=== PATIENT | male | born 1950 | race Caucasian/White ===

== ENCOUNTER → 2018-10-18 11:22 | Outpatient (CLI) | payer BC ==
[2015-12-08 12:13] VITALS: BMI 28.3
[~2018-10-18 11:22] MED LIST: BYSTOLIC10 MG PO; CATAPRES0.1 MG PO; FLOMAX0.4 MG PO; GLUCOPHAGE500 MG PO; LOTREL 5/10 MG1 CAP PO; PRAVACHOL40 MG PO
== END | disposition home or self-care (01) ==
LOC: D.HCCARDIO 11:22
PROVIDERS: ATTEND Internal Medicine Cardiovascular Disease
DX: I25.810 Atherosclerosis of coronary artery bypass graft(s) without angina pectoris (principal)

== ENCOUNTER → 2018-10-25 14:14 | Outpatient (CLI) | payer BC | END | disposition home or self-care (01) | LOC: D.HCCARDIO 14:14 | DX: R06.02 Shortness of breath (principal) ==

== ENCOUNTER 2018-10-30 11:56 | Outpatient (CLI) | payer BC ==
--- NOTE | ~2018-10-30 | HEMODYNAMI ---
PATIENT:YOKO GARG MEDICAL RECORD: [id number] : 54 LOCATION:[facility] ADMISSION DATE: 10/30/18 Generatedon:10/30/201815:06 Patient name: YOKO GARG Patient #: [id number] SSN: : 1950 Date of study: 10/30/2018 Page: Of Hemodynamic Procedure Report Patient Data Patient Demographics Procedure consent was obtained First Name: YOKO Gender: Male Last Name: FOREST : 1950 [facility] Initial: MACRINA Age: 68 year(s) Patient #: [id number] Race: Additional ID: [id number] Contact details Address: [address] [place] [address] State: [place] City: [place] Zip code: [address] Admission Admission Data Admission Date: 10/30/2018 Admission Time: 11:56 Admit Source: Other Weight (lbs.): 193.35 Weight (kg.): 87.7 Lab Results Lab Result Date: 10/30/2018 Lab Result Time: 12:30 Biochemistry Name Units Result Min Max BUN mg/dl 19 --(----)*- 7 18 Creatinine mg/dl 1.2 --(---*)-- 0.6 1.3 CBC Name Units Result Min Max Hematocrit % 43.5 --(*---)-- 42 54 Hemoglobin g/dl 15.1 --(-*--)-- 13.5 17.5 Procedure Procedure Types Cath Procedure Diagnostic Procedure LHC LHC w/Coronaries w/Grafts Sedation Charges Moderate Sedation up to 30 minutes Procedure Description Procedure Date Procedure Date: 10/30/2018 Procedure Start Time: 14:40 Procedure End Time: 15:06 Procedure Staff Name Function Chele Tian MD Performing Physician Charlie Nguyen RT Monitor Mireya Valentine RT Scrub Janna Valdovinos RN Nurse Procedure Data Cath Procedure Fluoroscopy Diagnostic fluoroscopy Total fluoroscopy Time: 0 time: 0 min min Diagnostic fluoroscopy Total fluoroscopy dose: 584 dose: 584 mGy mGy Contrast Material Contrast Material Type Amount (ml) Isovue 300 73 Entry Location Entry Primary Successful Side Size Upsize Upsize Entry Closure Succes sful Closure Location (Fr) 1 (Fr) 2 (Fr) Remarks Device Remarks Femoral Right 5 Fr Exoseal artery Estimated blood loss: 5 ml Diagnostic catheters Device Type Used For End Catheter Placement MULTIPACK JL 4.0 5Fr Procedure catheter DIAGNOSTIC JL 5 5Fr Procedure catheter ([id number]) DIAGNOSTIC AR MOD 5Fr Procedure Catheter ([id number]) DIAGNOSTIC IM 5Fr Procedure catheter ([id number]) MULTIPACK Pigtail 5 Fr Procedure catheter Procedure Complications No complications Procedure Medications Medication Administration Route Dosage 0.9% NaCl I.V. 100 ml/hr Oxygen etCO2 Nasal cannula 2 l/min Lidocaine 2% added to field 20 Heparin Flush Bag added to field 2 bags (1000units/500ml NS) Versed I.V. 2 mg Fentanyl I.V. 50 mcg Versed I.V. 2 mg Fentanyl I.V. 50 mcg Hemodynamics Rest HGB: 15.1 (g/dl) Heart Rate: 56 (bpm) Pressure Samples Time Site Value (mmHg) Purpose Heart Use Rate(bpm) 14:57 LV 99/2,8 Snapshot 79 14:58 AO 97/67(75) Pullback 79 14:58 LV 74/3,5 Pullback 79 Gradients Valve Time Site 1 Site 2 Mean SEP/DFP Peak To Heart Use (mmHg) (sec/min) Peak Rate (mmHg) (bpm) Aortic 14:58 LV AO 0 79 74/3,5 97/67(75) Calculations Valve P-P Mean Valve Index Valve Source Name Gradient Area Flow (cm2) Aortic 0 0 Snapshots Pre Cath Intra NCS Post Cath Vital Signs Time Heart Resp SPO2 etCO2 NIBP (mmHg) Rhythm Pain Sedation Rate (ipm) (%) (mmHg) Status Level (bpm) 14:16:07 55 16 99 35 152/75(132) SB 0 (11) 10(A) , No pain 14:20:30 56 18 99 36.7 133/73(114) SB 0 (11) 10(A) , No pain 14:24:48 57 12 100 20.2 147/75(121) SB 0 (11) 10(A) , No pain 14:29:10 58 12 99 20.2 135/75(110) SB 0 (11) 10(A) , No pain 14:34:13 60 10 98 30 122/67(111) NSR 0 (11) 9(A) , No pain 14:38:23 57 11 97 30 139/86(121) SB 0 (11) 9(A) , No pain 14:42:37 55 11 98 24.7 124/71(103) SB 0 (11) 9(A) , No pain 14:46:53 56 13 97 31.5 120/71(97) SB 0 (11) 9(A) , No pain 14:50:59 61 14 98 27 114/68(91) SB 0 (11) 9(A) , No pain 14:55:11 88 14 98 17.9 125/68(81) SB 0 (11) 9(A) , No pain 14:59:29 79 15 99 27.7 120/61(97) SB 0 (11) 10(A) , No pain 15:03:34 73 13 99 30.7 107/66(94) SB 0 (11) 10(A) , No pain Medications Time Medication Route Dose Verified Delivered Reason Notes Eff ectiveness by by 14:15:10 0.9% NaCl I.V. 100 Chele Janna used for ml/hr Jaylan Valdovinos sampling expert 14:15:25 Oxygen etCO2 2 Chele Janna used for Nasal l/min Jaylan Valdovinos procedure cannula RN 14:15:31 Lidocaine 2% added 20ml Chele Chele for local to vial Jaylan Tian MD anesthetic field 14:15:35 Heparin Flush added 2 Chele Chele used for Bag to bags Jaylan Tian MD procedure (1000units/500ml field NS) 14:25:34 Versed I.V. 2 mg Chele Janna for Jaylan Valdovinos sedation RN 14:25:44 Fentanyl I.V. 50 Chele Janna for mcg Jaylan Valdovinos sedation RN 14:31:07 Versed I.V. 2 mg Chele Janna for Jaylan Valdovinos sedation RN 14:31:11 Fentanyl I.V. 50 Chele Janna for mcg Jaylan Valdovinos sedation drying frame operator Log Time Note 14:05:12 Informed consent obtained and on chart 14:05:15 Admit Source: Other 14:05:27 Diagnostic Cath status Elective 14:05:30 Mireya Valentine RT(R) sent for patient. Start room use. 14:05:32 Time tracking: Regular hours (M-F 7:00 - 5:00) 14:05:37 Plan of Care:Hemodynamics will remain stable., Cardiac rhythm will remain stable., Comfort level will be maintained., Respiratory function will remain adequate., Patient/ family verbilizes understanding of procedure., Procedure tolerated without complication., Recovers from procedure without complications.. 14:09:35 Patient Weight : 193.35 lbs 14:10:06 Patient received from Pre/Post Procedure Room to CCL 1 Alert and oriented. Tansferred to table in Supine position. 14:10:07 Warm blankets applied, and tessie hugger turned on for patient comfort. 14:10:08 Correct patient and procedure confirmed by team. 14:10:09 ECG and BP/O2 sat monitors applied to patient. 14:10:31 H&P Date Dictated: 10/12/2018 Within 30 days and on chart., H&P Addendum completed by physician on day of procedure. (MUST COMPLETE FOR ALL OUTPATIENTS). 14:14:57 Vital chart was started 14:15:10 0.9% NaCl 100 ml/hr I.V. was administered by Janna Valdovinos RN; used for procedure; 14:15:25 Oxygen 2 l/min etCO2 Nasal cannula was administered by Janna Valdovinos RN; used for procedure; 14:15:31 Lidocaine 2% 20ml vial added to field was administered by Chele Tian MD; for local anesthetic; 14:15:35 Heparin Flush Bag (1000units/500ml NS) 2 bags added to field was administered by Chele Tian MD; used for procedure; 14:16:09 Baseline sample Acquired. 14:16:13 Rhythm: sinus rhythm 14:16:14 Full Disclosure recording started 14:16:15 Pre-procedure instructions explained to patient. 14:16:16 Pre-op teaching completed and patient verbalized understanding. 14:16:17 Family in patients room. 14:16:19 Patient NPO since Midnight. 14:16:21 Is the patient allergic to Iodine/contrast media? No. 14:16:22 Was the patient premedicated? No 14:16:24 Is patient on blood thinner?Yes 14:16:27 ACC The patient was administered the following blood thiners within the last 24 hours: ACCAspirin 14:16:29 Patient diabetic? No. 14:16:31 Previous problem with sedation/anesthesia? No ? 14:16:32 Snore? Yes 14:16:34 Sleep apnea? No 14:16:34 Deviated septum? No 14:16:35 Opens mouth fully? Yes 14:16:36 Sticks out tongue? Yes 14:16:38 Airway obstruction? No ? 14:16:40 Dentures? No ? 14:18:15 Pre procedure: right dorsailis pedis pulse 2+ Normal; easily identifiable; not easily obliterated 14:18:18 Patient pain scale 0/10 ?. 14:18:23 IV patent on arrival in left antecubital with 0.9% NaCl at [facility]. 14:18:57 Lab Result : BUN 19 mg/dl 14:18:57 Lab Result : Creatinine 1.2 mg/dl 14:18:57 Lab Result : Hemoglobin 15.1 g/dl 14:18:57 Lab Result : Hematocrit 43.5 % 14:19:01 Lab results completed and on chart. 14:19:03 Right groin area was prepped with chlora-prep and draped in sterile fashion 14:19:04 Alarms reviewed by R. N. 14:19:05 Sharps counted by scrub and verified by R.N. 14:19:08 Use device set Femoral Dx 14:19:09 ACIST Syringe (01547) opened to sterile field. 14:19:10 Bag Decanter (2002S) opened to sterile field. 14:19:10 Medline Cath Pack ([id number]) opened to sterile field. 14:19:12 ACIST Hand Control (89873) opened to sterile field. 14:19:13 ACIST Manifold (02280) opened to sterile field. 14:19:15 DIAGNOSTIC Multipack 5Fr catheter set ([id number]) opened to sterile field. 14:19:15 Tegaderm 4 x 4 (1626W) opened to sterile field. 14:19:17 SHEATH 5FR [place] (QOX077) opened to sterile field. 14:19:18 DIAGNOSTIC WIRE .035 260cm J wire (773207) opened to sterile field. 14:24:42 Physician arrived 14::43 --------ALL STOP TIME OUT------ 14::43 Final Timeout: patient, procedure, and site verified with staff and physician. All members of the team are in agreement. 14:24:45 Right groin site verified by team. 14:24:48 Maximum allowable Isovue 300 dose 300ml. Physician notified. (300ml for normal creatinines. For patients with creatinine of 1.7 or higher multiply weight(kg) x 5 divided by creatinine.) 14:24:51 Fire Safety Assessment: A--An alcohol-based skin anteseptic being used preoperatively., C--Open oxygen or nitrous oxide is being used., D--An ESU, laser, or fiber-optic light is being used. 14:24:56 Physical assessment completed. ASA score P 2 - A patient with mild systemic disease as per Chele Tian MD. 14:24:58 Sedation plan: IV Moderate Sedation Medication:Versed, Fentanyl 14:25:34 Versed 2 mg I.V. was administered by Janna Valdovinos RN; for sedation; 14:25:44 Fentanyl 50 mcg I.V. was administered by Janna Valdovinos RN; for sedation; 14:31:07 Versed 2 mg I.V. was administered by Janna Valdovinos RN; for sedation; 14:31:11 Fentanyl 50 mcg I.V. was administered by Janna Valdovinos RN; for sedation; 14:32:46 Zero performed for pressure channel P1 14:40:36 Procedure started. 14:40:39 Local anesthetic to right femoral artery with Lidocaine 2% by Chele Tian MD.INITIAL ACCESS ONLY 14:43:11 A 5 Fr sheath was inserted into the Right Femoral artery 14:43:21 A MULTIPACK JL 4.0 5Fr catheter was advanced over the wire and used for Procedure. 14:47:10 Catheter exchanged over wire. 14:47:15 A DIAGNOSTIC JL 5 5Fr catheter ([id number]) was advanced over the wire and used for Procedure. 14:47:28 LCA angiography performed. 14:48:37 Catheter exchanged over wire. 14:49:25 A DIAGNOSTIC AR MOD 5Fr Catheter ([id number]) was advanced over the wire and used for Procedure. 14:50:14 RCA angiography performed. 14:51:07 SVG to Diag angiography performed. 14:53:15 Catheter exchanged over wire. 14:53:20 A DIAGNOSTIC IM 5Fr catheter ([id number]) was advanced over the wire and used for Procedure. 14:53:28 BALDWIN to LAD angiography performed. 14:55:11 GLIDE WIRE ANGLE 260cm (RE8511) opened to sterile field. 14:55:20 glide wire wire advanced. 14:56:20 TORQUE DEVICE PLASTIC .038 ( TD01) opened to sterile field. 14:56:47 Catheter exchanged over wire. 14:56:53 A MULTIPACK Pigtail 5 Fr catheter was advanced over the wire and used for Procedure. 14:57:56 LV gram done using ANDREW 14:57:59 Injector settings: Ml/sec: 10, Volume: 20, 14:58:00 LV hemodynamics recorded. 14:58:12 EF : 50 % 14:58:52 Catheter removed. 14:58:55 EXOSEAL 5Fr (EX500) opened to sterile field. 14:59:02 Sheath removed intact; hemostasis achieved with Exoseal to the Right Femoral artery. 14:59:04 Procedure ended.(Physican Out) 14:59:08 Contrast amount:Isovue 300 73ml. 14:59:12 Fluoroscopy time 00.00 minutes. 14:59:16 Flurop Dose total: 584 14:59:16 Fluoroscopy dose: 584 mGy 14:59:19 Sharps counted by scrub and verified by R.N. 15:01:17 Insertion/operative site no bleeding no hematoma. 15:01:19 Post-op/insertion site Right Femoral artery dressed using a 4 x 4 and Tegaderm. 15:01:23 Post right femoral artery:stable, soft, clean and dry 15:01:24 Post Procedure Pulses reassessed and unchanged 15:01:26 Post-procedure physical assessment completed. ASA score P 2 - A patient with mild systemic disease as per Chele Tian MD. 15:01:29 Post procedure rhythm: unchanged. 15:03:09 Estimated blood loss: 5 ml 15:03:24 Post procedure instruction explained to patient.Patient verbalizes understanding. 15:03:24 Patient needs reinforcement of post procedure teaching. 15:05:47 Procedure type changed to Cath procedure, Diagnostic procedure, LHC, LHC w/Coronaries w/Grafts, Sedation Charges, Moderate Sedation up to 30 minutes 15:06:10 Procedure and supply charges have been captured, reviewed, submitted and are correct. 15:06:12 Procedure Complication : No complications 15:06:13 Vital chart was stopped 15:06:13 See physician's report for complete and final results. 15:06:15 Report given to Pre/Post Procedure Room. 15:06:17 Patient transfered to Pre/Post Procedure Room with Stretcher. 15:06:19 Procedure ended. 15:06:19 Full Disclosure recording stopped 15:06:23 End room use (Document Last) Device Usage Item Name Manufacture Quantity Catalog Hospital Part Current Minimal L ot# / Number Charge Number Stock Stock Serial# Code ACIST Acist 1 26544 779634 177812 179256 20 Syringe Medical (21214) Systems Inc Bag Microtek 1 2001S 982092 00868 339045 5 Decanter Medical Inc. () Medline Medline 1 [id number] 498428 12405 363003 5 Cath Pack ([id number]) ACIST Hand Acist 1 25819 395889 872088 604815 5 Control Medical (49634) Systems Inc ACIST Acist 1 44797 812286 117032 532048 5 Manifold Medical (42594) Systems Inc DIAGNOSTIC Cardinal 1 [id number] 703001 50080 082161 30 Multipack Health 5Fr catheter set (AF0442) Tegaderm 4 3M 1 1626W 023308 187866 053458 5 x 4 (1626W) SHEATH 5FR Terumo 1 FZS935 778407 450335 674172 5 [place] (XXK666) DIAGNOSTIC St Brian 1 540927 213449 606824 126285 30 WIRE .035 260cm J wire (248090) MULTIPACK Cardinal 1 971643 5 JL 4.0 5Fr Health catheter DIAGNOSTIC Cardinal 1 [id number] 785608 096222 672130 5 JL 5 5Fr Health catheter (373735X) DIAGNOSTIC Cardinal 1 [id number] 422216 883862 644585 15 AR MOD 5Fr Health Catheter (770114V) DIAGNOSTIC Cardinal 1 [id number] 081900 148987 007716 5 IM 5Fr Health catheter (984613B) GLIDE WIRE Terumo 1 [id number] 580206 901238 689246 5 ANGLE 260cm (MN1312) TORQUE [place] 1 TD01 519338 107062 909464 5 DEVICE Scientific PLASTIC .038 ( TD01) MULTIPACK Cardinal 1 259820 5 Pigtail 5 Health Fr catheter EXOSEAL 5Fr Cardinal 1 EX500 522495 974903 091475 10 (EX500) Health Signature Audit [place] Stage Time Signature Unsigned Intra-Procedure 10/30/2018 Charlie Nguyen 3:06:38 PM RT(R) Signatures Monitor : Charlie Nguyen RT Signature : Date : Time : [address] [address]
[2018-10-30 12:31] VITALS: BP 148/71; BMI 27.7
[2018-10-30 12:37] LABS: BASOPHILS 0.7 % (0-2); EOSINOPHILS 0.9 % (0-7); HEMATOCRIT 43.5 % (42.0-54.0); HEMOGLOBIN 15.1 g/dL (13.5-17.5); IMMATURE GRANULOCYTES 0.2 % (0-5); LYMPHOCYTES 23.9 % (15-50); MCH 31.5 pg (26.0-34.0); MCHC 34.7 g/dL (31.0-37.0); MCV 90.6 fL (80.0-100.0); MEAN PLATELET VOLUME 10.6 fL (7.4-10.4); MONOCYTES 14.4 % (2-11); NEUTROPHILS 59.9 % (40-80); PLATELET COUNT 202 10x3/uL (130-400); RDW 13.1 % (11.5-14.5); WBC 5.4 10x3/uL (4.8-10.8)
[2018-10-30 12:56] LABS: ANION GAP 13.6 mmol/L (8-16); CARBON DIOXIDE 27.3 mmol/L (21.0-32.0); CREATININE - SERUM 1.2 mg/dL (0.6-1.3); POTASSIUM - SERUM 3.9 mmol/L (3.5-5.1)
== END 2018-10-30 17:10 | disposition home or self-care (01) ==
LOC: D.CATH 11:56
PROVIDERS: Internal Medicine Cardiovascular Disease
DX: I25.119 Atherosclerotic heart disease of native coronary artery with unspecified angina pectoris (principal); I25.82 Chronic total occlusion of coronary artery; Z95.1 Presence of aortocoronary bypass graft; Z01.812 Encounter for preprocedural laboratory examination

== ENCOUNTER 2019-06-08 07:40 | Emergency (ER) | payer BC ==
[~2019-06-08] VITALS: Ht 177.8 cm; Wt 82.7 kg
[2019-06-08 07:49] VITALS: Ht 177.8 cm; Wt 82.7 kg
[2019-06-08] MEDS ORDERED: LISINOPRIL20 MG PO (07:52)
[2019-06-08 08:19] LABS: CALC OSMOLALITY 280 mosm/kg (275-300); CALCIUM 8.8 mg/dL (8.5-10.1); CARBON DIOXIDE 26.9 mmol/L (21.0-32.0); CHLORIDE - SERUM 105 mmol/L (98-107); CREATININE - SERUM 1.2 mg/dL (0.6-1.3); GLUCOSE 115 mg/dL (74-106); SODIUM 139 mmol/L (136-145); UREA NITROGEN 17 mg/dL (7-18); eGFR NON AFRICAN AMERICAN 64 mL/min (90-120)
[2019-06-08 08:21] LABS: HEMATOCRIT 46.7 % (42.0-54.0); HEMOGLOBIN 15.7 g/dL (13.5-17.5); LYMPHOCYTES 17.3 % (15-50); MCH 30.8 pg (26.0-34.0); MCHC 33.6 g/dL (31.0-37.0); MCV 91.7 fL (80.0-100.0); MEAN PLATELET VOLUME 10.6 fL (7.4-10.4); NEUTROPHILS 67.5 % (40-80); PLATELET COUNT 189 10x3/uL (130-400); RBC 5.09 10x6/uL (4.20-6.10); RDW 12.1 % (11.5-14.5); WBC 4.8 10x3/uL (4.8-10.8)
[2019-06-08 08:43] LABS: ALBUMIN 3.9 g/dL (3.4-5.0); ALKALINE PHOSPHATASE 172 U/L (46-116); ALT (SGPT) 111 U/L (10-68); BILIRUBIN - TOTAL 0.67 mg/dL (0.2-1.3); CKMB 1.1 U/L (0.0-3.6); CREATINE KINASE 65 UL (21-232); MAGNESIUM - SERUM 1.9 mg/dL (1.8-2.4); PROTEIN - SERUM 8.3 g/dL (6.4-8.2)
[2019-06-08 08:44] LABS: APTT 32.6 SECONDS (22.8-39.4); INR 1.02 (0.85-1.17); PROTIME 12.9 SECONDS (11.6-15.0)
[2019-06-08 08:48] LABS: TROPONIN-I < 0.017 ng/mL (0.000-0.060)
[2019-06-08 09:54] VITALS: BP 152/75
[2019-06-08 10:01] LABS: APPEARANCE CLEAR (CLEAR); BILIRUBIN NEGATIVE (NEGATIVE); COLOR YELLOW (YELLOW); GLUCOSE NEGATIVE (NEGATIVE); KETONE NEGATIVE (NEGATIVE); NITRITE NEGATIVE (NEGATIVE); PROTEIN NEGATIVE (NEGATIVE); SPECIFIC GRAVITY 1.005 (1.005-1.020); UROBILINOGEN NORMAL (NORMAL)
== END 2019-06-08 09:55 | disposition home or self-care (01) ==
LOC: D.ER 07:40
PROVIDERS: Family Medicine
DX: R42 Dizziness and giddiness (principal); I10 Essential (primary) hypertension; R73.03 Prediabetes; Z95.1 Presence of aortocoronary bypass graft

== ENCOUNTER 2019-10-04 07:28 | Emergency (ER) | payer BC ==
[~2019-10-04] VITALS: Ht 177.8 cm; Wt 84.1 kg
[~2019-10-04 07:28] MED LIST changes: +LISINOPRIL20 MG PO
[2019-10-04 07:37] VITALS: Ht 177.8 cm; Wt 84.1 kg
[2019-10-04] MEDS ORDERED: BYSTOLIC5 MG PO (07:40)
[2019-10-04] MEDS ORDERED: ASPIRIN81 MG PO (07:41)
[2019-10-04 08:31] LABS: CALC OSMOLALITY 276 mosm/kg (275-300); CALCIUM 8.7 mg/dL (8.5-10.1); CARBON DIOXIDE 24.5 mmol/L (21.0-32.0); CHLORIDE - SERUM 102 mmol/L (98-107); CREATININE - SERUM 1.1 mg/dL (0.6-1.3); GLUCOSE 137 mg/dL (74-106); POTASSIUM - SERUM 3.9 mmol/L (3.5-5.1); SODIUM 137 mmol/L (136-145); UREA NITROGEN 16 mg/dL (7-18); eGFR NON AFRICAN AMERICAN 71 mL/min (90-120)
[2019-10-04 08:35] LABS: BASOPHILS 0.5 % (0-2); EOSINOPHILS 1.4 % (0-7); HEMOGLOBIN 14.9 g/dL (13.5-17.5); LYMPHOCYTES 15.7 % (15-50); MCH 31.2 pg (26.0-34.0); MCHC 33.9 g/dL (31.0-37.0); MCV 92.2 fL (80.0-100.0); MEAN PLATELET VOLUME 10.6 fL (7.4-10.4); MONOCYTES 9.9 % (2-11); NEUTROPHILS 72.5 % (40-80); PLATELET COUNT 195 10x3/uL (130-400); RBC 4.77 10x6/uL (4.20-6.10); WBC 5.7 10x3/uL (4.8-10.8)
[2019-10-04 08:42] LABS: APTT 31.9 SECONDS (22.8-39.4); INR 0.99 (0.85-1.17); PROTIME 13.1 SECONDS (11.6-15.0)
[2019-10-04 08:47] LABS: ALBUMIN 3.9 g/dL (3.4-5.0); ALKALINE PHOSPHATASE 84 U/L (30-120); ALT (SGPT) 20 U/L (10-68); BILIRUBIN - TOTAL 0.63 mg/dL (0.2-1.3); CKMB 0.6 U/L (0.0-3.6); CREATINE KINASE 70 UL (21-232); PRO BNP 432 pg/mL (0-125); PROTEIN - SERUM 7.9 g/dL (6.4-8.2); TROPONIN-I < 0.017 ng/mL (0.000-0.060)
[2019-10-04 08:56] LABS: UDS - AMPHET NEGATIVE QUAL (NEGATIVE); UDS - BARB NEGATIVE QUAL (NEGATIVE); UDS - BENZO NEGATIVE QUAL (NEGATIVE); UDS - COCAINE NEGATIVE QUAL (NEGATIVE); UDS - OPIATE NEGATIVE QUAL (NEGATIVE); UDS - PCP NEGATIVE QUAL (NEGATIVE); UDS - THC NEGATIVE QUAL (NEGATIVE)
[2019-10-04 09:26] VITALS: BP 160/77
== END 2019-10-04 09:34 | disposition home or self-care (01) ==
LOC: D.ER 07:28
PROVIDERS: Family Medicine
DX: F41.0 Panic disorder [episodic paroxysmal anxiety] (principal); F41.9 Anxiety disorder, unspecified; I25.10 Atherosclerotic heart disease of native coronary artery without angina pectoris; I10 Essential (primary) hypertension

== ENCOUNTER 2020-12-18 14:30 | Outpatient (CLI) | payer BC ==
[2019-10-04 07:37] VITALS: BMI 26.6
[~2020-12-18 14:30] MED LIST changes: +ASPIRIN81 MG PO; +BYSTOLIC5 MG PO
== END 2020-12-18 23:59 | disposition home or self-care (01) ==
LOC: D.HCCECHO 14:30
PROVIDERS: ATTEND Internal Medicine Cardiovascular Disease
DX: I25.10 Atherosclerotic heart disease of native coronary artery without angina pectoris (principal)